=== PATIENT | male | born 1965 | race Caucasian/White ===

== ENCOUNTER → 2020-11-26 09:03 | Outpatient (CLI) | payer OTHER, SELFPAY | PROVIDERS: Visit Provider Urology | DX: Z20.822 Contact with and (suspected) exposure to COVID-19 (principal) | CPT/HCPCS: U0003 ==

== ENCOUNTER 2020-11-28 08:48 | Day surgery (SDC) | payer OTHER, SELFPAY ==
--- NOTE | 2020-11-28 09:35 | HMH.ANESCL ---
[facility] Anesthesia Checklist - Patient Identification Patient Identification: Arm Band - Structural Data Admitted From: Home Planned Operative Procedure/s: Vasectomy Consent for Planned Operative Procedure(s) Verified: Yes - NPO Status Verified Time NPO: 00:00 - Airway Assessment C-Spine Mobility Assessed: Yes TMJ Mobility Assessed: Yes Dentition: Good Dentition - Neurological Assessment Level of Consciousness: Awake Hx Seizures: No Numbness or tingling in extremities: No - Anesthesia Plan Anesthesia Risk discussed: Yes Anesthesia Plan: Verified ASA Class: II Anesthesia Type: Local & MAC [facility] History I have reviewed the patient's past medical history: Yes Medical History: Reports:: Hyperlipidemia, Hypertension Denies:: Cancer, Diabetes Mellitus Type 1, Diabetes Mellitus Type 2, Internal Pacemaker, MRSA *Have you ever received a pneumonia vaccine?: No *Have you received a flu vaccine this season?: No Anesthesia experience/problems:: None Laterality Cases: Bilateral: Tonsillectomy Other Surgeries: Yes: No Previous Surgery. No: Pacemaker Amputation: No Fractures: No - *Social History Last grade of school completed: Advanced degree Smoking Status: Never smoker Alcohol Intake: never Substance Use Type: denies use *Occupational Status:: unemployed Housing: house Household Members: spouse *Travel in the last 8 weeks: None Family Hx:: Cancer, Diabetes, Hypertension
[2020-11-28 09:36] VITALS: BP 169/107; PULSE 56; RESP 16; TEMP 36.8; O2SAT 99
[2020-11-28 10:35] VITALS: BP 127/74; PULSE 58; RESP 18; TEMP 36.4; O2SAT 95
--- NOTE | 2020-11-28 10:43 | HMH.OPNOTE ---
Date of procedure: 11/28/20 Pre-op Diagnosis:: Sterilization Post-op Diagnosis:: Sterilization Procedure performed:: Vasectomy Surgeon:: Tan Dickinson MD PSYCHIATRIC TECHNICIAN:: Ledy Buchanan Anesthesia: MAC Estimated blood loss (mL): 2 Clinical Note:: 55-year-old white male presents for vasectomy today. Preoperative sterilization consult was performed a month ago. No changes in his medical history since then. Operative findings:: Scrotum and testicular examination were within normal limits. The vasectomy was performed through a single midline incision without complication. Operative note:: Patient taken to the operating room after informed consent was obtained. He was placed on the operating room table in the supine position and monitored anesthesia care administered. He was prepped and draped in the standard surgical fashion. The left vas was palpated and brought cephalad to the midline raphae. Local anesthetic was placed under the skin and around the vas. Incision was then made in the midline raphae and a tenaculum was used to grasp the vas and it was brought up through the incision. The vasal sheath was then incised and the vas proper was dissected from its surrounding adventitial tissue. 1 clip was placed distally and 2 clips were placed proximally. A 1 cm segment of the vas was excised. The basal lumen was cauterized. Hemostasis achieved and the left vas dropped into the left hemiscrotum. The right vas was then palpated and brought up through the same midline incision. Local anesthetic was applied and the exact procedure was performed as on the left side. The right side was dropped back into the hemiscrotum and the incision was closed with a single 3-0 chromic in a horizontal mattress fashion. Compression dressing applied. Patient tolerated the procedure well there were no complications. Sponge needle instrument count were correct at the end of the case. Condition: stable Disposition: same day Specimens:: Past segments were not sent Complications:: None
[2020-11-28 10:45] VITALS: BP 114/75; PULSE 59; RESP 18; O2SAT 95
[2020-11-28 10:55] VITALS: BP 121/75; PULSE 49; RESP 18; O2SAT 98
[2020-11-28 11:05] VITALS: BP 127/75; PULSE 49; RESP 18; O2SAT 98
== END 2020-11-28 11:15 | disposition home or self-care (01) ==
LOC: OR 08:50
PROVIDERS: PCP Nurse Practitioner; Visit Provider Urology
PROC: (CPT 55250; principal; 2020-11-28 10:15)
DX: Z30.2 Encounter for sterilization (principal); E78.5 Hyperlipidemia, unspecified; I10 Essential (primary) hypertension
CPT/HCPCS: 55250